=== PATIENT | male | born 1995 | race African-American/Black ===

== ENCOUNTER → 2017-02-27 | Outpatient (CLI) | payer OTHER | LOC: HORT 16:14 | PROVIDERS: ATTEND Family Medicine | DX: S62.305D Unspecified fracture of fourth metacarpal bone, left hand, subsequent encounter for fracture with routine healing (principal); X58.XXXD Exposure to other specified factors, subsequent encounter ==

== ENCOUNTER → 2017-03-26 | Outpatient (CLI) | payer OTHER | LOC: HORT 11:29 | PROVIDERS: ATTEND Family Medicine | DX: S62.309A Unspecified fracture of unspecified metacarpal bone, initial encounter for closed fracture (principal); X58.XXXA Exposure to other specified factors, initial encounter ==